=== PATIENT | male | born 1985 | race Hispanic/Latino ===

== ENCOUNTER 2017-09-18 23:43 | Emergency (ER) | payer BC ==
[2017-09-18 23:47] VITALS: O2SAT 100
--- NOTE | 2017-09-19 00:33 | ED PDOC ---
HPI: Psych/Substance Abuse Time Seen by Provider: 09/18/17 23:54 Chief Complaint (Nursing): Alcohol Ingestion Chief Complaint (Provider): Possible Alcohol Intoxication History Per: EMS Additional Complaint(s): Per Couch is a 31 year old male that was brought to the ED by [facility] after he was behaving bizarrely and stepping onto [employer] train tracks. Patient is unable to provide additional history, but is saying nonsensical speech, stating that he wants to "go to work tomorrow," and "see his ." No additional information provided. Past Medical History Reviewed: Historical Data, Nursing Documentation, Vital Signs Vital Signs: Last Vital Signs Temp 98.0 F 09/18/17 23:44 Pulse 100 H 09/18/17 23:44 Resp 16 09/18/17 23:44 BP 156/104 H 09/18/17 23:44 Pulse Ox 100 09/18/17 23:44 - Family History Family History: States: Unknown Family Hx - Allergies Allergies/Adverse Reactions: Allergies Allergy/AdvReac Type Severity Reaction Status Date / Time No Known Allergies Allergy Verified 09/18/17 23:44 Review of Systems Review Of Systems: ROS cannot be obtained secondary to pt's inabilty to answer questions. Physical Exam - Reviewed Nursing Documentation Reviewed: Yes Vital Signs Reviewed: Yes - Physical Exam Appears: Positive for: Non-toxic, No Acute Distress Head Exam: Positive for: ATRAUMATIC, NORMOCEPHALIC Skin: Positive for: Normal Color, Warm Eye Exam: Positive for: Normal appearance, EOMI, PERRL Neck: Positive for: Normal, Supple Cardiovascular/Chest: Positive for: Regular Rate, Rhythm. Negative for: Murmur Respiratory: Positive for: Normal Breath Sounds. Negative for: Wheezing Gastrointestinal/Abdominal: Positive for: Normal Exam, Soft. Negative for: Tenderness Back: Positive for: Normal Inspection. Negative for: L CVA Tenderness, R CVA Tenderness Extremity: Positive for: Normal ROM (Patient is moving all extremities). Negative for: Deformity, Swelling Neurologic/Psych: Positive for: Alert, Oriented. Negative for: Motor/Sensory Deficits - ECG O2 Sat by Pulse Oximetry: 100 (RA) Pulse Ox Interpretation: Normal Medical Decision Making Medical Decision Making: Impression: Possible Substance Use Plan: * CT Head w/o contrast * EKG * CMP * CBC * Acetaminophen * Alcohol Serum * Salicylate * Urine Drug Screen * Urinalysis * Urinary Catheter * Reevaluation CT Head w/o IV contrast FINDINGS: Brain: Mild volume loss No hemorrhage. No significant white matter disease. No edema. Ventricles: Unremarkable. No ventriculomegaly. Bones/joints: Unremarkable. No acute fracture. Soft tissues: Unremarkable. Sinuses: Unremarkable as visualized. No acute sinusitis. Mastoid air cells: Unremarkable as visualized. No mastoid effusion. IMPRESSION: No intracranial hemorrhage.Please see discussion above. Scribe Attestation: Documented by Jennifer Wallace, acting as a scribe for Shazia Neville MD. Provider Scribe Attestation: All medical record entries made by the Scribe were at my direction and personally dictated by me. I have reviewed the chart and agree that the record accurately reflects my personal performance of the history, physical exam, medical decision making, and the department course for this patient. I have also personally directed, reviewed, and agree with the discharge instructions and disposition. 1:18AM Patient now AAOx3 and admits to taking daygyil, drinking alcohol and smoking marijuana today. Denies homicidal or suicidal ideation. 2:33 AM EKG shows NSR at 71 BPM, normal intervals, no ST changes. Patient is AAOx3 and ambulating around ED. Admits to polysubstance abuse tonight. Patient now clinically sober to be discharged into police custody. Disposition - Clinical Impression Clinical Impression: Polysubstance abuse - Patient ED Disposition Is Patient to be Admitted: No - Disposition Disposition: Discharged/Transfer to Law Enforcement Disposition Time: 02:33 Condition: STABLE Additional Instructions: Do not do drugs or drink copious alcohol. Return to ED if condition worsens. Cleared for incarceration Forms: [employer] ([place])
[2017-09-19 02:36] VITALS: BP 134/78; PULSE 71; RESP 18; TEMP 98
[2017-09-19 02:42] LABS: URINE BILIRUBIN NEGATIVE (NEGATIVE); URINE BLOOD NEGATIVE (NEGATIVE); URINE CLARITY CLEAR (Clear); URINE COLOR COLORLESS (YELLOW); URINE GLUCOSE (UA) NEG (Normal); URINE LEUKOCYTE ESTERASE NEG Leu/uL (Negative); URINE NITRATE NEGATIVE (NEGATIVE); URINE PROTEIN NEGATIVE (NEGATIVE); URINE UROBILINOGEN 0.2-1.0 mg/dL (0.2-1.0)
[2017-09-19 02:52] LABS: BARBITURATES, UR NEGATIVE (NEGATIVE); BENZODIAZEPINES, UR NEGATIVE (NEGATIVE); OPIATES, UR NEGATIVE (NEGATIVE); PHENCYCLIDINE, UR NEGATIVE (NEGATIVE)
--- NOTE | 2017-09-19 09:11 | CT ---
PROCEDURE: CT HEAD WITHOUT CONTRAST. HISTORY: altered COMPARISON: None available. TECHNIQUE: Axial computed tomography images were obtained through the head/brain without intravenous contrast. Radiation dose: Total exam DLP = 850 mGy-cm. This CT exam was performed using one or more of the following dose reduction techniques: Automated exposure control, adjustment of the mA and/or kV according to patient size, and/or use of iterative reconstruction technique. FINDINGS: HEMORRHAGE: No intracranial hemorrhage. BRAIN: No mass effect or edema. No atrophy or chronic microvascular ischemic changes. VENTRICLES: Unremarkable. No hydrocephalus. CALVARIUM: Unremarkable. PARANASAL SINUSES: Mild inflammatory changes. MASTOID AIR CELLS: Unremarkable as visualized. No inflammatory changes. OTHER FINDINGS: None. IMPRESSION: Mild ethmoidal sinus inflammatory changes . Otherwise remarked CT it study Comments: Preliminary report per Vrad noted. Mild ethmoidal sinus inflammatory changes added to that preliminary report
--- NOTE | 2017-09-19 10:01 | RAD ---
HISTORY: altered COMPARISON: No prior. TECHNIQUE: Chest PA and lateral FINDINGS: LUNGS: No active pulmonary disease. PLEURA: No significant pleural effusion identified. No pneumothorax apparent. CARDIOVASCULAR: Normal. OSSEOUS STRUCTURES: No significant abnormalities. VISUALIZED UPPER ABDOMEN: Normal. OTHER FINDINGS: None. IMPRESSION: No active disease.
--- NOTE | 2017-09-19 11:17 | CARD ---
APPROVED REPORT EKG Measurement Heart [id number] <Conclusion> Normal sinus rhythm Normal ECG
== END 2017-09-19 03:34 ==
LOC: H.ER 23:43
DX: F19.10 Other psychoactive substance abuse, uncomplicated (principal)
CPT/HCPCS: 70450; 71046; 81003; 93005; 99281; G0480